=== PATIENT | female | born 1965 | race Caucasian/White ===

== ENCOUNTER 2018-08-18 16:18 | Inpatient (IN) | payer BC ==
[~2018-08-18] VITALS: Ht 175.3 cm; Wt 114.3 kg
[~2018-08-18 16:18] MED LIST: BACTRIM DS TAB1 EACH PO; NOHOMEMEDICATIONS; NORCO 5-325 TA1 EACH PO; NORFLEX100 MG PO; PREDNISONE50 MG PO; PROAIR HFA8.5 GM IH
[2018-08-18 16:21] VITALS: BP 153/103
[2018-08-18] MEDS ORDERED: CYMBALTA60 MG PO (16:28)
[2018-08-18 16:44] LABS: ABSOLUTE BASOPHILS 0.1 thou/uL (0.0-0.2); ABSOLUTE EOSINOPHILS 0.1 thou/uL (0.0-0.7); ABSOLUTE LYMPHOCYTES 3.2 thou/uL (0.8-5.3); ABSOLUTE MONOCYTES 0.6 thou/uL (0.0-1.2); ABSOLUTE NEUTROPHILS 5.2 thou/uL (1.6-8.1); BASOPHILS 0.7 %; EOSINOPHILS 1.2 %; HEMATOCRIT 45.4 % (37.0-47.0); HEMOGLOBIN 15.1 gm/dL (12.0-15.0); LYMPHOCYTES 34.9 %; MCH 29.8 pg (26.0-34.0); MCHC 33.3 g/dL (28.0-37.0); MCV 89.4 fL (80.0-100.0); MONOCYTES 6.8 %; NUCLEATED RBCS 0 /100WBC; PLATELET COUNT* 327 thou/uL (150-400); POLYS 56.4 %; RBC 5.07 mil/uL (4.20-5.00); RDW-CV 12.7 % (10.5-14.5); WBC 9.1 thou/uL (4.0-11.0)
[2018-08-18 16:55] LABS: APTT 27.5 Seconds (25.0-31.3); PROTIME 10.1 Seconds (9.20-11.50)
[2018-08-18 17:04] LABS: ANION GAP 8 mmol/L (7-16); BUN 30 mg/dL (7-18); CALCIUM 9.6 mg/dL (8.5-10.1); CHLORIDE 99 mmol/L (98-107); CO2 31 mmol/L (21-32); CREATININE 1.3 mg/dL (0.6-1.3); GLUCOSE 97 mg/dL (70-99); POTASSIUM 3.7 mmol/L (3.5-5.1); SODIUM 138 mmol/L (136-145); TROPONIN-I LEVEL <0.06 ng/mL (<0.06)
[2018-08-18 17:09] LABS: ALBUMIN 4.5 g/dL (3.4-5.0); ALKALINE PHOSPHATASE 89 U/L (46-116); CK-MB MASS 1.1 ng/mL (<0.5-3.6); LIPASE 137 U/L (73-393); MAGNESIUM 2.2 mg/dL (1.8-2.4); NT-PRO BRAIN NAT PEPTIDE 22 pg/mL (<300); SGOT 39 U/L (15-37); SGPT 92 U/L (30-65); TOTAL BILIRUBIN 0.6 mg/dL (<0.1-1.0); TOTAL PROTEIN 8.3 g/dL (6.4-8.2)
[2018-08-18 20:00] VITALS: BP 121/80
[2018-08-18 20:55] VITALS: BP 127/82
[2018-08-19] VITALS: BP 115/59
[2018-08-19 04:00] VITALS: BP 88/44
[2018-08-19 07:50] VITALS: BP 108/75
[2018-08-19 11:26] VITALS: BP 110/66
[2018-08-19 15:25] VITALS: BP 110/70
--- NOTE | 2018-08-19 15:39 | EXE ---
[place] [address] STRESS ECHOCARDIOGRAM Name: ANGELTENA I Room: [address] [facility]#: [id number] Admission: 08/18/18 Attend Phys: Benoit Fajardo Discharge: Date of : 69 Date of Service: 08/19/18 1539 Report #: [id number] THIS REPORT FOR: //name// APPROVED REPORT Study performed: 08/19/2018 13:22:10 Exam: Stress Echocardiogram Indication: Chest pain , Dyspnea Patient Location: In-Patient Stress Nurse: Radha Lake RN Room #: [facility] Supervising Physician: Bassam Mari MD Ht: 5 ft 9 in HR: 82 bpm BP: 121/82 mmHg Medical History Cardiac Risk Factors: Tobacco History (Former), HTN, FHX of CAD Procedure The patient underwent an Exercise Stress Test using the Shad Protocol. Blood pressure, heart rate, and EKG were monitored. An Echocardiogram was performed by staging technician in four stages in quad fashion. At peak stress, four selected images were obtained and placed side by side with resting images for comparison. Stress Test Details Stress Test: Exercise stress testing was performed using a Shad protocol. HR Resting HR: 82 bpm Max Heart Rate (APMHR): 170 bpm Max HR Achieved: 167 bpm Target HR (85% APMHR): 144 bpm % of APMHR: 98 Recovery HR: 106 bpm HR response to stress: Normal HR response to stress BP Resting BP: 121/82 mmHg Max BP: 169/76 mmHg Recovery BP: 128/98 mmHg BP response to stress: Normal blood pressure response [place] [address] STRESS ECHOCARDIOGRAM Name: ANGELTENA I Room: [address]#: [id number] Admission: 08/18/18 Attend Phys: Benoit Fajardo Discharge: Date of : 69 Date of Service: 08/19/18 1539 Report #: [id number] Resting ECG: Normal EKG Stress ECG: No ischemic st-t changes Clinical Reason for Termination: Completed protocol Stress Symptoms: Burning feeling right chest/ shoulder Exercise duration: 5 min 59 sec Highest Stage Achieved: Stage 2: 2.5 mph at 12% grade. Exercise capacity: 7.05 METs Pre-Stress Echo The resting Echocardiogram showed normal left ventricular contractility with an estimated Ejection Fraction of about 60-65%. Normal wall motion in all segments on baseline images. Post-Stress Echo The stress Echocardiogram showed normal left ventricular contractility with an estimated Ejection Fraction of about >70%. Normal augmentation of wall motion in all segments on post stress images. Conclusion Clinical Response: Non-ischemic Exercise Capacity: Below Average Stress ECG Response: Non-ischemic Stress Echo Images: Non-ischemic Other Information Study Quality: Fair <ELECTRONICALLY SIGNED> By: Bassam Mari MD, FACC 08/19/18 1539 1539 1539 Bassam Mari MD, FAC /INF
[2018-08-19 15:49] VITALS: BP 110/70
[2018-08-19] MEDS ORDERED: OMEPRAZOLE 20 M20 M1 PO (15:49)
--- NOTE | 2018-08-19 16:03 | EKG ---
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: Meka BRADLEY : 1965 Requested By: Jose Hinds Order Number: [id number] MD: Bassam Mari Measurements Intervals [place] Rate: 118 P: 43 LA: 154 QRS: 18 QRSD: 74 T: 33 QT: 317 QTc: 445 Interpretive Statements Sinus tachycardia Probable left atrial enlargement Baseline wander in lead(s) V2 No previous ECG available for comparison Electronically Signed On 08-19-2018 16:02:50 AIRCRAFT INSTRUMENT TESTER by Bassam Mari [email or web address] <ELECTRONICALLY SIGNED> By: Bassam Mari MD, [facility] 08/19/18 1602 1623 1623 Bassam Mari MD, [facility] /EPI
--- NOTE | 2018-08-19 16:05 | EKG ---
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
[2018-08-19 23:07] LABS: GLYCOHEMOGLOBIN (HGB A1C) 5.7 % (4.8-5.6)
== END 2018-08-19 18:19 | disposition home or self-care (01) | DRG 392 ==
LOC: M.ERS 16:18 → M.TBA-ER 17:10 → M.2W 17:10
PROVIDERS: Family Medicine; ADMIT Internal Medicine
DX: K21.9 Gastro-esophageal reflux disease without esophagitis (principal); I10 Essential (primary) hypertension; Z90.49 Acquired absence of other specified parts of digestive tract; Z79.899 Other long term (current) drug therapy; Z88.1 Allergy status to other antibiotic agents; Z82.49 Family history of ischemic heart disease and other diseases of the circulatory system

== ENCOUNTER → 2020-01-11 | Outpatient (CLI) | payer OTHER ==
[~2020-01-11] MED LIST changes: +CYMBALTA60 MG PO; +OMEPRAZOLE 20 M20 M1 PO
== END ==
LOC: M.RAD 12:22
PROVIDERS: ATTEND Internal Medicine
DX: J98.4 Other disorders of lung (principal)